=== PATIENT | female | born 1980 | race Caucasian/White ===

== ENCOUNTER 2017-03-19 20:21 | Inpatient (IN) | payer OTHER ==
[~2017-03-19] VITALS: Ht 170.2 cm; Wt 99.3 kg
[2017-03-19 23:05] LABS: ABSOLUTE BASOPHIL COUNT 0 /CUMM (0.0-0.2); ABSOLUTE EOSINOPHIL COUNT 0.1 /CUMM (0.0-0.7); ABSOLUTE GRANULOCYTE CT 5.7 /CUMM (1.4-6.5); ABSOLUTE LYMPH COUNT 1.9 /CUMM (1.2-3.4); ABSOLUTE MONOCYTE COUNT 0.4 /CUMM (0.10-0.60); BASOPHIL % 0.3 % (0.0-2.0); EOSINOPHIL % 0.9 % (0-5); GRANULOCYTE % 70.4 % (42.2-75.2); HEMATOCRIT 29.7 % (37-47); MEAN CORPUSCULAR HGB 27.1 PG (27.0-31.0); MEAN PLATELET VOLUME 7.9 FL (7.4-10.4); PLATELET COUNT 282 /CUMM (130-400); RBC DISTRIBUTION WIDTH 16.5 % (11.5-14.5); RED BLOOD CELL CT 3.62 /CUMM (4.20-5.40); WHITE BLOOD CELL COUNT 8.1 /CUMM (4.8-10.8)
--- NOTE | 2017-03-20 01:29 | History & Physical ---
General Information and HPI MD Statement: I have seen and personally examined AYAN MURDOCK and documented this H&P. The patient is a 36 year old female at [41] weeks and [0] days gestation who presented with a chief complaint of [ctx]. Source of Information: patient, family Exam Limitations: no limitations History of Present Illness: 36 year old at 41 weeks gestation. She had a relatively uncomplicated . She presented in early labor 3 cm at approximately 9 PM. She had spontaneous rupture of membranes just before midnight and was noted to have thick meconium. She spontaneously delivered within the hour. Please see delivery note. 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 Past Pregnancies Past Pregnancies: Date of Delivery: 2004 and 2009 largest was 8 lbs. 13 oz. 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 EENTM: Reports: no symptoms. Cardiovascular: Reports: no symptoms. Respiratory: Reports: no symptoms. GI: Reports: no symptoms. Genitourinary: Reports: no symptoms. Musculoskeletal: Reports: no symptoms. Skin: Reports: no symptoms. Neurological/Psychological: Reports: no symptoms. Hematologic/Endocrine: Reports: no symptoms. Immunologic/Allergic: Reports: no symptoms. All Other Systems: Reviewed and Negative Exam & Diagnostic Data Last 24 Hrs of Vital Signs/I&O Intake & Output 03/20 0800 03/20 0000 03/19 1600 Intake Total Output Total Balance Patient 219 lb Weight Obstetric Exam Wgt Gained During : 30 Pelvimetry: Proven to 8 lbs. 13 oz. Dilation (cm): 4 Effacement (%): 80 Station: -1 Membranes: SROM Fluid: thick meconium Fundal Height (cm): 40 Multiple Gestation? No Contractions: Every 3-5 #1 - FHR Baseline: 150 Category: 1 Estimated Weight: 8 pounds Presentation: Vertex Patient for Induction? No Physical Exam General Appearance Alert, Oriented X3, Cooperative, No Acute Distress Cardiovascular Regular Rate Lungs Clear to Auscultation Abdomen Soft, gravid Reproductive (FEMALE) Normal female genitalia Labs Blood Type & Rh: Opos Antibody Screen: Negative Hct/Hgb & Platelets #1: 12.3, 37.6, 322 Hct/Hgb & Platelets #2: 9.9, 33.2, 359 Rubella: Immune VDRL #1: Negative VDRL #2: Negative HbsAg: Negative HIV #1: Negative HIV #2 Negative 1 Hr P Group B Strep: Negative Initial Ultrasound: 12 weeks and 1 day Anatomy Ultrasound: Limited cardiac view, follow-up demonstrated normal growth and normal cardiac anatomy Genetic Testing: Declined aneuploidy screening, negative cystic fibrosis negative hemoglobin electrophoresis Assessment/Plan Assessment/Plan: 36-year-old 3 para 2 at 41 weeks who presented in the evening on 2016. Shortly after admission she spontaneously ruptured her membranes and thick meconium was noted. She delivered within the hour. Plan routine care As Ranked By This Provider Problem List: 1. Core Measures/Miscellaneous Venous Thromboembolism VTE Risk Factors: / VTE Contraindications: No Contraindications VTE Diagnosis: No Beta Fatou Is Beta Fatou a Home Med? No Antibiotics Is Patient on Antibiotics? No Attending MD Review Statement Attending Statement Attending MD Statement: examined this patient, discussed with family, discussed w/nursing
--- NOTE | 2017-03-20 01:33 | Labor & Delivery Summary ---
Delivery Summary Vaginal Delivery: Vaginal: vertex Episiotomy/Lacerations: Episiotomy/Lacerations: FIRST-DEGREE Repair: 3-0 Polysorb Anesthesia: Half percent Marcaine Placenta: Placenta: spontanteous, normal, 3 vessel, nuchal cord (x_), MECONIUM STAINED Anesthesia: none Baby's Weight: Pending Apgars - 1 Min: 1 Apgars - 5 Min: 1 Additional Comments: Patient presents to the hospital around 2100 on 03/19/2017. She was 3 cm in in early labor. Just prior to midnight she was 4 cm and spontaneously ruptured membranes and thick meconium was noted. She delivered within the hour. Head delivered spontaneously. Nuchal cord was reduced. Shoulders and infant were delivered without difficulty. Good cry was noted. The infant was noted to be vigorous. The was further dried and stimulated and bulb suctioned. Infant was placed on maternal abdomen the cord was clamped and cut. She sustained a first-degree abrasion which was hemostatic after one [id number] suture of 0 Vicryl. Patient tolerated procedure well. Placenta was delivered intact.
[2017-03-20 02:33] VITALS: BP 126/78
--- NOTE | 2017-03-20 09:40 | PN- OBGYN ---
Surgical Brief Attending Note Brief Attending Note: PPD#0 pt is resting in bed, no complaints, tolerate diet, void without difficulties PE: VSS Cv RRR Lungs CTA B/L Abdomen: soft, nontender, uterus firm, fundus below umbilicus. lochia mild Ext: DCT (-) A/P: 36 yo, s/p , PPD#0 1. RT PP care 2. pain management as needed
[2017-03-21 08:36] LABS: ABSOLUTE BASOPHIL COUNT 0 /CUMM (0.0-0.2); ABSOLUTE EOSINOPHIL COUNT 0.1 /CUMM (0.0-0.7); ABSOLUTE GRANULOCYTE CT 4.9 /CUMM (1.4-6.5); ABSOLUTE LYMPH COUNT 2.1 /CUMM (1.2-3.4); ABSOLUTE MONOCYTE COUNT 0.3 /CUMM (0.10-0.60); BASOPHIL % 0.4 % (0.0-2.0); EOSINOPHIL % 1.9 % (0-5); GRANULOCYTE % 65.1 % (42.2-75.2); HEMATOCRIT 28.9 % (37-47); MEAN CORPUSCULAR HGB 26.7 PG (27.0-31.0); MEAN CORPUSCULAR HGB CONC 32.8 G/DL (33.0-37.0); MEAN CORPUSCULAR VOLUME 81.4 FL (81.0-99.0); MEAN PLATELET VOLUME 7.5 FL (7.4-10.4); PLATELET COUNT 270 /CUMM (130-400); RBC DISTRIBUTION WIDTH 16.4 % (11.5-14.5); RED BLOOD CELL CT 3.55 /CUMM (4.20-5.40); WHITE BLOOD CELL COUNT 7.5 /CUMM (4.8-10.8)
[2017-03-21] MEDS ORDERED: IBUPROFEN800 M1 PO (10:07)
--- NOTE | 2017-03-21 10:18 | PN- Post Delivery/GYN ---
Subjective Subjective: feeling well asking to go home early Review of Systems Constitutional: Reports: no symptoms. Denies: chills, fever. EENTM: Denies: blurred vision, double vision, visual changes. Cardiovascular: Denies: chest pain. Respiratory: Denies: cough, short of breath. Gastrointestinal: Denies: constipation, diarrhea, nausea, vomiting. Neurological/Psychological: Denies: anxiety, depressed. Objective Last 24 Hrs of Vital Signs/I&O vss Physical Exam General Appearance Alert, Oriented X3, Cooperative, No Acute Distress Cardiovascular Regular Rate Lungs Clear to Auscultation Abdomen Soft, fundus firm Neurological Normal Gait, Normal Speech, Strength at 5/5 X4 Ext, Normal Tone Extremities No Edema Pelvic (FEMALE) lochia serosanganous Current Medications: Current Medications Sig/Myrna Start time Last Medication Dose Route Stop Time Status Admin Acetaminophen 650 MG Q4P PRN 03/20 130 AC PO Docusate Sodium 100 MG BID PRN 03/20 130 AC PO Hydroxyzine HCl 100 MG AT BEDTIME NEED.. 03/19 2315 AC 03/19 PO 2319 Ibuprofen 800 MG Q6P PRN 03/200 AC 03/21 PO 0631 Lactated Ringer's 1,000 ML .Q8H 03/19 2315 DC 03/19 IV 2315 Morphine Sulfate 10 MG ONCE PRN 03/19 2315 AC IM Oxycodone/ 1 TAB Q3P PRN 03/20 130 AC Acetaminophen PO Last 24 Hrs of Labs/Jelani: Laboratory Tests 03/21/17 0815: CBC w Diff NO MAN DIFF REQ, RBC 3.55 L, MCV 81.4, MCH 26.7 L, RDW 16.4 H, MPV 7.5, Gran % 65.1, Lymphocytes % 28.3, Monocytes % 4.3, Eosinophils % 1.9, Basophils % 0.4, Absolute Granulocytes 4.9, Absolute Lymphocytes 2.1, Absolute Monocytes 0.3, Absolute Eosinophils 0.1, Absolute Basophils 0, PUBS MCHC 32.8 L Assessment/Plan Assessment/Plan ppd #1 vss afebrile plan d/c home on motrin and FeSO4 and PNV Problem List: 1. Attending MD Review Statement Attending Statement Attending MD Statement: examined this patient, discussed with family, discussed with nursing
== END 2017-03-21 12:00 | DRG 775 ==
LOC: CBCO 20:21 → GNO 21:25
PROVIDERS: ADMIT Obstetrics & Gynecology
PROC: 10E0XZZ Delivery of Products of Conception, External Approach (ICD-10-PCS; principal; 2017-03-20)
PROC: 0HQ9XZZ Repair Perineum Skin, External Approach (ICD-10-PCS; principal; 2017-03-20)
DX: O48.0 Post-term pregnancy (principal); O69.81X0 Labor and delivery complicated by cord around neck, without compression, not applicable or unspecified; O70.0 First degree perineal laceration during delivery; Z3A.41 41 weeks gestation of pregnancy; Z37.0 Single live birth
CPT/HCPCS: GNOP; GNOS; 36415; 81001